=== PATIENT | female | born 1975 | race Native Hawaiian/Other Pacific Islander ===

== ENCOUNTER 2021-01-10 16:21 | Emergency (ER) | payer OTHER ==
[~2021-01-10] VITALS: Ht 167.6 cm; Wt 128.8 kg
[2021-01-10 17:03] LABS: PLATELET COUNT 316 K/uL (152-353)
[2021-01-10 17:09] LABS: POTASSIUM 3.5 mmol/L (3.6-5.2)
[2021-01-10 19:00] VITALS: BP 99/51; TEMP 98.1
[2021-01-10] MEDS ORDERED: BACLOFEN20 MG PO (21:32)
[2021-01-10] MEDS ORDERED: BUSPIRONE HYDROC5 MG PO (21:33)
[2021-01-10] MEDS ORDERED: FLUTICASON50 MCG/AC1 NAS (21:38)
[2021-01-10] MEDS ORDERED: LINZESS290 MCG PO (21:39)
[2021-01-10] MEDS ORDERED: CLARITIN10 MG PO (21:44)
[2021-01-10] MEDS ORDERED: LORA1TAB17 PO (21:46)
[2021-01-10] MEDS ORDERED: MECLIZINE25 MG PO (21:48)
[2021-01-10] MEDS ORDERED: MELATONIN1 M1 PO (21:50)
[2021-01-10] MEDS ORDERED: MELATONIN10 MG PO (21:51)
[2021-01-10] MEDS ORDERED: MIDODRINE5 MG PO (21:53)
[2021-01-10] MEDS ORDERED: OMEGA-31000 MG PO (21:54)
[2021-01-10] MEDS ORDERED: PERCOCET1 TA3 PO (21:59)
[2021-01-10] MEDS ORDERED: PANTOPRAZOLE 40MG TA PO (22:00)
[2021-01-10] MEDS ORDERED: LYRICA200 MG PO (22:02)
[2021-01-10] MEDS ORDERED: LYRICA50 MG PO (22:07)
[2021-01-10] MEDS ORDERED: RISP0.25 PO (22:08)
[2021-01-10] MEDS ORDERED: CRESTOR5 MG PO (22:09)
[2021-01-10] MEDS ORDERED: RISP0.5T2 PO (22:09)
[2021-01-10] MEDS ORDERED: GEODON60 MG PO (22:12)
[2021-01-10] MEDS ORDERED: VITAMIN D31000 UNI4 PO (22:12)
== END 2021-01-10 19:00 | disposition other institution (70) ==
LOC: ED 16:21
PROVIDERS: Family Medicine
PROC: 0T2BX0Z Change Drainage Device in Bladder, External Approach (ICD-10-PCS; principal; 2021-01-10)
DX: F31.89 Other bipolar disorder (principal); R46.89 Other symptoms and signs involving appearance and behavior; G35 Multiple sclerosis; N39.0 Urinary tract infection, site not specified; Z11.52 Encounter for screening for COVID-19; Z04.6 Encounter for general psychiatric examination, requested by authority
CPT/HCPCS: 51702; 80053; 81000; 85027; 87086; 87088; 87635; 93005; 99283; U0003